=== PATIENT | female | born 1955 | race Caucasian/White ===

== ENCOUNTER → 2016-07-05 | Outpatient (CLI) | payer OTHER, BC | LOC: COL.RAD 12:55 | DX: R10.32 Left lower quadrant pain (principal) | CPT/HCPCS: Q9967 ==

== ENCOUNTER → 2016-12-20 | Outpatient (CLI) | payer OTHER, BC | LOC: MC.RAD 08:00 | DX: Z12.31 Encounter for screening mammogram for malignant neoplasm of breast (principal) ==

== ENCOUNTER → 2017-01-24 | Outpatient (CLI) | payer BC | LOC: COL.VAS 08:00 | DX: I34.0 Nonrheumatic mitral (valve) insufficiency (principal) ==

== ENCOUNTER → 2018-02-01 | Outpatient (CLI) | payer BC | LOC: MC.RAD 13:40 | DX: Z12.31 Encounter for screening mammogram for malignant neoplasm of breast (principal) ==

== ENCOUNTER → 2018-05-01 | Outpatient (REF) | LOC: ZLAB.WCH 08:35 | DX: Z01.89 Encounter for other specified special examinations (principal) ==

== ENCOUNTER 2018-05-14 02:10 | Inpatient (IN) | payer BC ==
[~2018-05-14] VITALS: Ht 172.7 cm; Wt 82.8 kg
[2018-05-14] VITALS (180 sets, daily range): BP systolic 90–112; BP diastolic 48–66; PULSE 66–107; TEMP 97.6–97.8; O2SAT 87–100
[2018-05-14] MEDS ORDERED: TOPROL XL 50MG50 MG PO (02:26)
[2018-05-14] MEDS ORDERED: ASPIRIN 81M81 MG/TA2 PO (02:27)
[2018-05-14] MEDS ORDERED: TAMBOCOR50 MG PO (02:27)
[2018-05-14 02:29] LABS: BASO # 0.1 (0.0-0.2); BASO % 0.9 % (0.0-2.0); EOS # 0.1 (0.0-0.7); EOS % 1.3 % (0-4.0); GRAN # 5.2 (1.4-6.5); GRAN % 65.5 % (42.2-75.2); HEMATOCRIT 43.1 % (37.0-47.0); HEMOGLOBIN 14.3 g/dl (12.5-16.0); LYMPH # 1.5 (1.2-3.4); LYMPH % 18.1 % (20.0-51.0); MEAN CELL VOLUME 92 fl (80.0-100.0); MEAN CORPUSCULAR HEMOGLOBIN 30 pg (27.0-31.0); MEAN CORPUSCULAR HGB CONC 33 g/dl (33.0-37.0); MEAN PLATELET VOLUME 10.2 fl (7.4-10.4); MONO # 1.1 (0.1-0.6); MONO % 13.8 % (1.7-9.3); PLATELET COUNT 256 K/mm3 (130-400); REDCELL DISTRIBUTION WIDTH-CV 12.9 % (11.5-14.5)
[2018-05-14 02:41] LABS: ALANINE AMINOTRANSFERASE 55 U/L (9-52); ALBUMIN 4.3 gm/dL (3.5-5.0); ALKALINE PHOSPHATASE 60 U/L (50-136); ANION GAP 9 mmol/L (7-16); AST,SGOT 28 U/L (15-37); BILIRUBIN,TOTAL 0.4 mg/dL (0.0-1.0); BLOOD UREA NITROGEN 17 mg/dL (7-17); CALCIUM 9.8 mg/dL (8.4-10.2); CARBON DIOXIDE 25 mmol/L (22-30); CHLORIDE 106 mmol/L (98-107); GLUCOSE 95 mg/dL (74-106); MAGNESIUM 2.2 mg/dL (1.6-2.3); POTASSIUM 3.9 mmol/L (3.4-5.0); SODIUM 140 mmol/L (137-145); TOTAL PROTEIN 7.3 gm/dL (6.4-8.2)
[2018-05-14 03:08] LABS: TROPONIN-I < 0.012 ng/mL (0.000-0.035)
[2018-05-14 03:13] LABS: PROTHROMBIN TIME 11.4 SECONDS (9.7-12.8)
--- NOTE | 2018-05-14 04:25 | NUR ---
Report received from Shayne Mitchell RN in ED.
--- NOTE | 2018-05-14 04:55 | NUR ---
Pt arrived via stretcher X1 ED staff assist with personal belongings. Pt is alert with no complaints of SOA or chest pain at this time. With X1 stand by assist pt transfered from stretcher to bed with a steady gait and no complaints of dizziness/ lightheadedness. pt was hooked up to the monitor at bedside at this time. No family members with pt or in the waiting room per pt report.
[2018-05-14] MEDS ORDERED: VITAMIN D 1001000 IU PO (05:10)
--- NOTE | 2018-05-14 07:20 | NUR ---
Report provided to Leanne Valencia RN. Pt is sleeping in bed and gave prior verbal okay to not wake up for bedside report.
--- NOTE | 2018-05-14 07:20 | NUR ---
Bedside report received from CARLOS Dejesus
--- NOTE | 2018-05-14 08:00 | NUR ---
Assessment completed. Pt A/Ox3. Pt's at bedside. Discussed POC r/t esmolol gtt and monitoring VS. Call light in reach. Will monitor.
--- NOTE | 2018-05-14 08:15 | NUR ---
Pt remains on esmolol gtt. Pt HR converted to SR 60s on monitor.
--- NOTE | 2018-05-14 11:14 | NUR ---
SW met with patient after clinical rounds to discuss discharge planning. Patient live independently at home with her . Her PCP is Dr Pettit and she obtains prescriptions from [facility]. Patient reports she does not have any home health services or use any medical equipment at home. Patient is interested in DPOA and SW provided form. SW will come back when patient is ready to sign. Patient is planning to discharge home today. No needs upon discharge.
[2018-05-14] MEDS ORDERED: TAMBOCOR 1100 MG/TAB PO (11:16)
[2018-05-14] MEDS ORDERED: TOPROL XL 25MG25 MG PO (11:17)
--- NOTE | 2018-05-14 11:19 | NUR ---
IVF and emsmolol gtts dc'd per dr tran and dr holland's orders. pt will be discharged today after first dose of flecainide.
--- NOTE | 2018-05-14 11:58 | NUR ---
SW and Nurse Substation Maintenance Technician met with patient to witness DPOA. Patient signed and was provided copies. SW put a copy on patient's chart.
--- NOTE | 2018-05-14 12:30 | NUR ---
Discharged paperwork discussed with pt. Pt verbalizes understanding and signed papers. right FA PIV dc'd, catheter intact and pressure drsg applied. Pt dressed and left unit via wheelchair with RN. Pt's dtr met pt at entrance and helped pt to car.
== END 2018-05-14 13:00 | disposition home or self-care (01) | DRG 310 ==
LOC: COL.ER 02:10 → ICU 03:23
PROVIDERS: Emergency Medicine; ADMIT Family Medicine
DX: I48.91 Unspecified atrial fibrillation (principal); I48.92 Unspecified atrial flutter; I10 Essential (primary) hypertension; I34.0 Nonrheumatic mitral (valve) insufficiency; Z87.891 Personal history of nicotine dependence; Z85.3 Personal history of malignant neoplasm of breast
CPT/HCPCS: 99223-AI; J1650; J7030

== ENCOUNTER → 2019-02-03 | Outpatient (CLI) | payer BC ==
[~2019-02-03] MED LIST: ASPIRIN 81M81 MG/TA2 PO; TAMBOCOR 1100 MG/TAB PO; TAMBOCOR50 MG PO; TOPROL XL 25MG25 MG PO; TOPROL XL 50MG50 MG PO; VITAMIN D 1001000 IU PO
== END ==
LOC: MC.RAD 13:05
DX: Z12.31 Encounter for screening mammogram for malignant neoplasm of breast (principal)

== ENCOUNTER → 2020-02-05 | Outpatient (CLI) | payer BC | LOC: MC.RAD 09:00 | DX: Z12.31 Encounter for screening mammogram for malignant neoplasm of breast (principal) ==

== ENCOUNTER → 2021-03-21 | Outpatient (CLI) | payer MEDICARE, BC | LOC: MC.RAD 07:45 | DX: Z12.31 Encounter for screening mammogram for malignant neoplasm of breast (principal) ==